=== PATIENT | male | born 1995 | race Two or more races ===

== ENCOUNTER 2017-07-18 02:51 | Emergency (ER) | payer OTHER ==
[2017-07-18] MEDS ORDERED: LET GEL TOPICAL 1 EA SYR TP ONE (03:05)
--- NOTE | 2017-07-18 03:05 | EDPHY ---
H & P Stated Complaint: Abrasions to both knees from fall. Time Seen by Provider: 07/18/17 03:04 HPI/ROS: HPI CHIEF COMPLAINT: Bilateral knee abrasions HISTORY OF PRESENT ILLNESS: Patient is a 22-year-old male, is otherwise healthy , no significant medical history up-to-date on shots, presents emergency room bilateral knee abrasions. States 2-3 days ago when he fell off his skateboard. He has been keeping them clean however presents emergency room due to some crusting of yellowness to left 1 and wants them clean. Denies any fever. Denies significant pain chest pain or shortness of breath. Denies any significant swelling. Able to ambulate well. States tetanus shot is up-to- date. Past Medical History: No significant medical history Past Surgical History: No significant surgical history Social History: [employer], denies drugs alcohol tobacco. Family History: Noncontributory ROS REVIEW OF SYSTEMS: A comprehensive 10 point review of systems is otherwise negative aside from elements mentioned in the history of present illness. Exam Constitutional triage nursing summary reviewed, vital signs reviewed, awake/ alert. Eyes normal conjunctivae and sclera, EOMI, PERRLA. HENT normal inspection, atraumatic, moist mucus membranes, no epistaxis, neck supple/ no meningismus, no raccoon eyes. Respiratory clear to auscultation bilaterally, normal breath sounds, no respiratory distress, no wheezing. Cardiovascular rate normal, regular rhythm, no murmur, no edema, distal pulses normal. Gastrointestinal soft, non-tender, no rebound, no guarding, normal bowel sounds, no distension, no pulsatile mass. Genitourinary no CVA tenderness. Musculoskeletal no midline vertebral tenderness, full range of motion, no calf swelling, no tenderness of extremities, no meningismus, good pulses, neurovascularly intact. Skin abrasions to both knees. Worse on the left than right, no deep laceration. On the left knee anterior abrasion there is some yellow crusting. No brent pus. No brent cellulitis. Neurologic awake, alert and oriented x 3, AAOx3, moves all 4 extremities equally, motor intact, sensory intact, CN II-XII intact, normal cerebellar, normal vision, normal speech. Psychiatric normal mood/affect. Heme/Lymph/Immune no lymphadenopathy. Differential Diagnosis: Includes but is not limited to in a particular order bilateral knee abrasions, cellulitis, early cellulitis Medical Decision Making: Plan for this patient will clean and irrigate his wounds. Apply dressings. P.o. Keflex here in emergency room. Prescription for Keflex at home. Watch closely for further signs of infection this includes worsening redness, swelling pain questions or concerns he understand. Re-evaluation: Source: Patient - Personal History Current Tetanus/Diphtheria Vaccine: Unsure Current Tetanus Diphtheria and Acellular Pertussis (TDAP): Unsure - Medical/Surgical History Hx Asthma: No Hx Chronic Respiratory Disease: No Hx Diabetes: No Hx Cardiac Disease: No Hx Renal Disease: No Hx Cirrhosis: No Hx Alcoholism: No Hx HIV/AIDS: No Hx Splenectomy or Spleen Trauma: No Other PMH: Denies - Social History Smoking Status: Never smoked Constitutional: Initial Vital Signs Temperature (C) 37.0 C 07/18/17 02:56 Heart Rate 68 07/18/17 02:56 Respiratory Rate 16 07/18/17 02:56 Blood Pressure 134/73 H 07/18/17 02:56 O2 Sat (%) 96 07/18/17 02:56 O2 Delivery Mode Room Air Allergies/Adverse Reactions: No Known Allergies Allergy (Unverified 07/18/17 02:59) Home Medications: Medication Instructions Recorded Cephalexin [Keflex (*)] 500 mg PO Q6H #28 cap 07/18/17 Departure - Departure Disposition: Home, Routine, Self-Care Clinical Impression: Abrasion Condition: Good Instructions: Abrasion (ED) Additional Instructions: 1. Watch her wound closely. Keep them clean and dry. 2. Return emergency room if there is any worsening symptoms questions or concerns includes worsening swelling, pain, drainage. Signs of infection. Referrals: NONE *PRIMARY CARE P,. [Primary Care Provider] - As per Instructions Prescriptions: Cephalexin [Keflex (*)] 500 mg PO Q6H #28 cap
[2017-07-18] MEDS ORDERED: CEPHALEXIN 500 MG CAP PO ONE (03:09)
[2017-07-18 04:12] VITALS: BP 118/67
== END 2017-07-18 04:11 | disposition home or self-care (01) ==
DX: S80.212A Abrasion, left knee, initial encounter (principal); S80.211A Abrasion, right knee, initial encounter; V00.131A Fall from skateboard, initial encounter; Y99.8 Other external cause status; Y93.51 Activity, roller skating (inline) and skateboarding

== ENCOUNTER 2017-08-14 17:15 | Emergency (ER) | payer OTHER ==
--- NOTE | 2017-08-14 18:12 | EDPHY ---
H & P Time Seen by Provider: 08/14/17 18:06 HPI/ROS: CHIEF COMPLAINT: Left thumb laceration HISTORY OF PRESENT ILLNESS: 22-year-old [id number] male with up-to- date tetanus was preparing food and accidentally cut his left thumb distal phalanx. He sustained a flap laceration. PHYSICAL EXAM (Prior to examination, patient consented to physical exam, hands were washed and my usual and customary physical exam procedures followed) 1) GENERAL: Well-developed, well-nourished, alert and oriented. Appears to be in no acute distress. 2) HEAD: Normocephalic 3) HEENT: sclera anicteric 4) LUNGS: Breathing comfortably. 5) SKIN: Left thumb palmar aspect distal phalanx flap laceration with viable flap tissue. Flap Laceration measures 2.5 cm. 6) MUSCULOSKELETAL: Flexor extensor function at the MCP and IP are intact. 7) NEUROLOGIC: Full sensation distally Smoking Status: Never smoked Constitutional: Initial Vital Signs Temperature (C) 37 C 08/14/17 17:18 Heart Rate 68 08/14/17 17:18 Respiratory Rate 16 08/14/17 17:18 Blood Pressure 145/75 H 08/14/17 17:18 O2 Sat (%) 95 08/14/17 17:18 O2 Delivery Mode Room Air Allergies/Adverse Reactions: No Known Allergies Allergy (Unverified 08/14/17 17:18) Home Medications: Medication Instructions Recorded Cephalexin [Keflex] 500 mg PO TID 5 Days cap 08/14/17 MDM/Departure - MDM Procedures: Procedure: Laceration repair. I explained the indications, risks and benefits for both laceration repair and anesthetic administration. Verbal consent was obtained from the patient and parent. The laceration on the location was anesthetized using 0.5% bupivicaine without epinephrine digital nerve block. After anesthetic administered the patient was observed for a period of time and had no apparent adverse effects. The wound was cleaned, prepped, draped in normal sterile fashion and explored to its base. No foreign body seen, no foreign bodies palpated. There were no deep structures involved. No tendon injury was identified. The wound wound edges were reapproximated with 5 simple interrupted 5 O Prolene suture. The wound repair was simple. The procedure was performed by myself. Patient has been informed that scarring will occur, although efforts have been made to minimize this. ED Course/Re-evaluation: This flap laceration has viable flow. The patient has been informed that I cannot attest to the long-term viability of this tissue however as it currently does have flow I think that and attempt to reattach this tissue is appropriate from the emergency department. He has been informed however that the tissue may not survive.. I am starting on prophylactic antibiotics, I am recommending follow up with Hand surgery. The skin edges have been gently reapproximated. He feels comfortable with this plan. I saw this patient independently based on established practice protocols. Care of patient under supervision of secondary supervising physician Dr Beltran - Depart Disposition: Home, Routine, Self-Care Clinical Impression: Left thumb flap laceration Condition: Good Instructions: Laceration (ED), Care For Your Stitches (ED) Additional Instructions: Return to the ER if you develop redness, swelling, discharge, warmth to the wound, red streaks going up your arm, or any other symptoms that concern you. Prescriptions: Cephalexin [Keflex] 500 mg PO TID 5 Days cap Referrals: Maicol House MD [Medical Doctor] - 5-7 days, call for appt.
[2017-08-14 19:03] VITALS: BP 138/76
== END 2017-08-14 19:03 | disposition home or self-care (01) ==
PROC: 0HQGXZZ Repair Left Hand Skin, External Approach (ICD-10-PCS; principal; 2017-08-14)
DX: S61.012A Laceration without foreign body of left thumb without damage to nail, initial encounter (principal); W26.8XXA Contact with other sharp object(s), not elsewhere classified, initial encounter; Y99.8 Other external cause status; Y93.G1 Activity, food preparation and clean up